=== PATIENT | female | born 1955 | race American Indian/Alaskan Native ===

== ENCOUNTER 2019-04-18 05:59 | Day surgery (SDC) | payer OTHER ==
--- NOTE | 2019-04-17 15:39 | History and Physical Report ---
History of Present Illness Date of examination: 04/12/19 History of present illness: Patient presents for diagnostic hysteroscopy with D&C d/t persistent Postmenopausal bleeding and EMB with simple hyperplasia. 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 Abnormal PAP: negative Infection History HIV Risk Eval: no Hx of STD: None Active Medications (reviewed today): SIMVASTATIN 20 MG ORAL TABLET (SIMVASTATIN) 1 po qhs LOSARTAN POTASSIUM TABLET (LOSARTAN POTASSIUM TABS) HYDROCHLOROTHIAZIDE 25 MG ORAL TABLET (HYDROCHLOROTHIAZIDE) 1 po qd Current Allergies (reviewed today): PCN (Critical) Past Medical History: Reviewed history from 12/30/2007 and no changes required: Hypertension Hyperlipidemia Past Surgical History: Reviewed history from 12/30/2007 and no changes required: BTL Family History Summary: Reviewed history Last on 07/06/2014 and no changes required:04/17/2019 Other Family Member - Has No Family History of Uterine Cancer - Entered On: 11/18/2018 Other Family Member - Has No Family History of Small Bowel Cancer - Entered On: 11/18/2018 Other Family Member - Has No Family History of Stomach Cancer - Entered On: 11/18/2018 Other Family Member - Has No Family History of Pancreatic Cancer - Entered On: 11/18/2018 Other Family Member - Has No Family History of Ovarvian Cancer - Entered On: 11/18/2018 Other Family Member - Has No Family History of Kidney/Urinary Tract Cancer - Entered On: 11/18/2018 Other Family Member - Has No Family History of Spontaneous DVT-PE - Entered On: 11/18/2018 Other Family Member - Has No Family History of Colon Cancer - Entered On: 11/18/2018 Other Family Member - Has No Family History of Brain Cancer - Entered On: 11/18/2018 Other Family Member - Has No Family History of Breast Cancer - Entered On: 11/18/2018 Other Family Member - Has No Family History of Biliary Tract Cancer - Entered On: 11/18/2018 General Comments - FH: No Family History of Breast Cancer No Family History of Colon Cancer No Family History of Ovarian Cancer No Family History of DVT/PE on OCP Social History: Reviewed history from 07/06/2014 and no changes required: Patient is Smoking History: Patient has never smoked. Risk Factors: Smoked Tobacco Use: Never smoker Smokeless Tobacco Use: Never Passive smoke exposure: no Drug use: no Alcohol use: no Exercise: yes Seatbelt use: 100 % Mammogram History: Date of Last Mammogram: 08/30/2018 PAP Smear History: Date of Last PAP Smear: 10/28/2018 Previous Tobacco Use: Signed On 03/15/2019 Smoked Tobacco Use: Never smoker Smokeless Tobacco Use: Never Passive smoke exposure: no Drug use: no HIV high-risk behavior: no Caffeine use: 0 drinks per day Previous Alcohol Use: Signed On 03/15/2019 Alcohol use: no Exercise: yes Times per week: 3 Seatbelt use: 100 % Sun Exposure: rarely Colonoscopy History: Date of Last Colonoscopy: 03/04/2007 Mammogram History: Date of Last Mammogram: 08/30/2018 PAP Smear History: Date of Last PAP Smear: 10/28/2018 Physical Exam Appearance: well developed, well nourished, no acute distress Other Exams Lungs: no rales, rhonchi, or wheezes Heart: S1, S2, no murmur, rub, or gallop Genitourinary Exam Uterus: deferred for EUA Impression & Recommendations: Problem # 1: Postmenopausal Bleeding (ICD-627.1) (AAV96-L17.0) [id number] Consent reviewed and signed . Possible laparoscopy or laparotomy explained to patient. The risks and alternatives for this surgery were reviewed with the patient. She was informed of possible bleeding, infection, injury to bowel, bladder, ureters or other adjacent organs. The patient was instructed/informed the following: The normal length of hospital stay for this procedure. Nothing to eat or drink after midnight the evening prior to surgery. Clear liquids the evening before surgery. Pre-op instruction sheets given. . Infection precautions reviewed, patient to call for any signs or symptoms of infection. The usual discomforts associated with this procedure were detailed. Proper use of pain medicines was reviewed. Patient was given ample opportunity to have all her questions answered before signing informed consent. Problem # 2: Benign endometrial hyperplasia (ICD-621.31) (GCE12-O79.01) Orders: Ofc Vst Est [id number] ([id number]) Medications Added to Medication List This Visit: 1) Simvastatin 20mg 2) Simvastatin 20 Mg Oral Tablet (Simvastatin) .... 1 po qhs 3) Losartan Potassium Tablet (Losartan potassium tabs) Medications and Allergies Allergies Allergy/AdvReac Type Severity Reaction Status Date / Time Penicillins Allergy Hives Unverified 04/12/19 16:47 Home Medications Medication Instructions Recorded Confirmed Last Taken Type Losartan Potassium 100 mg PO DAILY 04/12/19 04/12/19 Unknown History Simvastatin 20 mg PO DAILY 04/12/19 04/12/19 Unknown History hydroCHLOROthiazide [HCTZ] 25 mg PO DAILY 04/12/19 04/12/19 Unknown History Assessment and Plan - Patient Problems (1) Postmenopausal bleeding Status: Acute (2) Endometrial hyperplasia without atypia, simple Status: Acute
[~2019-04-18 05:59] MED LIST: LACTATED RINGERS 1,000 ML IV SCH
[2019-04-18] MEDS ORDERED: fentaNYL 100 MCG/2 ML INJ IV PRN (06:24)
--- NOTE | 2019-04-18 06:26 | Anesthesia Consultation ---
Anesthesia Consult and Med Hx Date of service: 04/18/19 - Airway Anesthetic Teeth Evaluation: Dentures (full upper and lower) ROM Head & Neck: Adequate Mental/Hyoid Distance: Adequate Mallampati Class: Class III Intubation Access Assessment: Probably Good - Pulmonary Exam CTA: Yes - Cardiac Exam Cardiac Exam: RRR - Pre-Operative Health Status ASA Pre-Surgery Classification: ASA2 Proposed Anesthetic Plan: General - Pulmonary Hx Smoking: No Hx Respiratory Symptoms: No - Cardiovascular System Hx Hypertension: Yes Hx Heart Attack/AMI: No Hx Percutaneous Transluminal Coronary Angioplasty (PTCA): No - Central Nervous System CVA: No - Gastrointestinal Hx Gastroesophageal Reflux Disease: Yes (well controlled) - Endocrine Hx Renal Disease: No Hx Liver Disease: No Hx Insulin Dependent Diabetes: No Hx Non-Insulin Dependent Diabetes: No Hx Thyroid Disease: No - Other Systems Hx Obesity: No - Additional Comments Anesthesia Medical History Comments: No hx anesthetic complications.
--- NOTE | 2019-04-18 06:26 | Anesthesia Day of Surgery ---
Anesthesia Day of Surgery - Day of Surgery Patient Examined: Yes Patient H&P Reviewed: Yes Patient is NPO: Yes
[2019-04-18] MEDS ORDERED: BACTERIOSTATIC SODIUM CHLORIDE 0.9% 30 ML VIAL INFILTRATI ONE (06:31)
[2019-04-18] MEDS: MIDAZOLAM 2 MG/2 ML INJ IV NR ×2 (06:55→07:25)
[2019-04-18 07:16] LABS: Hematocrit 39.6 % (30.3-42.9); Hemoglobin 13.1 gm/dl (10.1-14.3); Mean Corpuscular HGB Conc 33 % (30-34); Mean Corpuscular Volume 84 fl (79-97); Platelet Count 208 K/mm3 (140-440); Red Blood Count 4.69 M/mm3 (3.65-5.03); Red Cell Distribution Width 15.2 % (13.2-15.2)
[2019-04-18 07:17] LABS: BUN/Creatinine Ratio 9; Blood Urea Nitrogen 9 mg/dL (7-17); Calcium 9.2 mg/dL (8.4-10.2); Hemolysis Index 3
[2019-04-18] MEDS ORDERED: ONDANSETRON 4 MG/2 ML INJ ONE (07:25)
[2019-04-18] MEDS ORDERED: propofoL 200 MG/20 ML VIAL IV ONE (07:25)
[2019-04-18] MEDS ORDERED: dexAMETHasone 20 MG/5 ML VIAL ONE (07:25)
[2019-04-18] MEDS ORDERED: fentaNYL 100 MCG/2 ML INJ ONE (07:25)
[2019-04-18] MEDS ORDERED: KETOROLAC 30 MG/1 ML INJ ONE (07:25)
[2019-04-18] MEDS ORDERED: LIDOCAINE MPF (2%) 20 MG/1 ML VIAL 5 ML ONE (07:26)
[2019-04-18] MEDS ORDERED: SILVER NITRATE APPLICATOR 1 EA TP ONE (07:27)
[2019-04-18] MEDS ORDERED: SODIUM CHLORIDE 0.9% IRRIG SOLN 2000 ML IR ONE (08:15)
--- NOTE | 2019-04-18 08:44 | Operative Report ---
Operative Report Operative Report: PREOPERATIVE DIAGNOSES: 1. Persistent postmenopausal bleeding. POSTOPERATIVE DIAGNOSES: 1. Persistent postmenopausal bleeding.. PROCEDURE PERFORMED: 1. Dilation and curettage (D&C). 2. Hysteroscopy. ANESTHESIA: General anesthesia with LMA ESTIMATED BLOOD LOSS: Less than 20 cc. INDICATIONS: This is a 63-year-old -British female that presents persistent postmenopausal bleeding in spite of benign findings on endometrial biopsy. PROCEDURE: The patient was seen in the preoperative suite. Expected procedure and postoperative course discussed with her and her . She was taken to the operative suite where general anesthesia by LMA was performed. She was placed in a dorsal lithotomy position. . A bimanual exam was done, the uterus was found to be retroverted, mobile. She was prepped and draped in the normal sterile fashion. Timeout was performed. Her bladder was drained with the red Rodas catheter which produced approximately 50 cc of clear yellow urine. The cervix and vagina were grossly normal with no obvious masses or deformities. A bivalve operative speculum was placed in the vagina and the anterior lip of the cervix was grasped with the single-tooth tenaculum. The uterus was sounded to ~10 cm. The cervix was progressively dilated to allow the diagnostic hysteroscope. Under direct visualization, the ostia were within normal limits. The endometrial lining appeared thickened, however, there was no obvious evidence of malignancy. The hysteroscope was removed and a small sharp curette was placed intrauterine very carefully using anterior wall for guidance. Endometrial curettings were obtained The endometrial sampling was placed on Telfa pad and sent to Pathology for evaluation, permanent. The hysteroscope was introduced again, still with thickened tissue noted however no evidence of perforation was noted. At this point procedure was ended. The single-tooth tenaculum and speculum were removed. The cervix was found to be hemostatic. Counts were correct. Patient was taken to the PACU stable. Distention fluid: Normal saline Deficit: 100 mL
[2019-04-18 09:30] VITALS: BP 145/85
== END 2019-04-18 12:19 | disposition home or self-care (01) ==
LOC: OR 05:59
PROVIDERS: ATTEND Obstetrics & Gynecology
DX: N95.0 Postmenopausal bleeding (principal); N85.01 Benign endometrial hyperplasia; I10 Essential (primary) hypertension; K21.9 Gastro-esophageal reflux disease without esophagitis; E78.00 Pure hypercholesterolemia, unspecified; Z79.899 Other long term (current) drug therapy; Z88.0 Allergy status to penicillin; Z98.890 Other specified postprocedural states; Z98.51 Tubal ligation status
CPT/HCPCS: 36415; 58558; 80048; 85027; 86850; 86900; 86901; 88305; A4217; J1100; J1885; J2250; J2405; J2704; J3010; J7120

== ENCOUNTER 2019-08-10 10:39 | Observation (INO) | payer OTHER, MEDICARE ==
[2019-06-30 09:30] LABS: Basophils # (Auto) 0.1 K/mm3 (0.0-0.1); Basophils % (Auto) 0.7 % (0.0-1.8); Eosinophils # (Auto) 0.8 K/mm3 (0.0-0.4); Eosinophils % (Auto) 10.9 % (0.0-4.3); Hematocrit 38.8 % (30.3-42.9); Hemoglobin 13.1 gm/dl (10.1-14.3); Lymphocytes # (Auto) 2.4 K/mm3 (1.2-5.4); Lymphocytes % (Auto) 30.5 % (13.4-35.0); Mean Corpuscular HGB Conc 34 % (30-34); Mean Corpuscular Volume 86 fl (79-97); Monocytes # (Auto) 0.6 K/mm3 (0.0-0.8); Monocytes % (Auto) 8.2 % (0.0-7.3); Platelet Count 210 K/mm3 (140-440); Red Cell Distribution Width 14.7 % (13.2-15.2)
[2019-06-30 09:43] LABS: BUN/Creatinine Ratio 13; Blood Urea Nitrogen 13 mg/dL (7-17); Calcium 9.5 mg/dL (8.4-10.2); Hemolysis Index 3
--- NOTE | 2019-06-30 15:31 | Anesthesia Consultation ---
Anesthesia Consult and Med Hx Date of service: 07/06/19 - Airway Anesthetic Teeth Evaluation: Dentures ROM Head & Neck: Adequate Mental/Hyoid Distance: Adequate Mallampati Class: Class II Intubation Access Assessment: Probably Good - Pulmonary Exam CTA: Yes - Cardiac Exam Cardiac Exam: RRR - Pre-Operative Health Status ASA Pre-Surgery Classification: ASA3 Proposed Anesthetic Plan: General Nerve Block: TAP - Pulmonary Hx Smoking: No Hx Respiratory Symptoms: No - Cardiovascular System Hx Hypertension: Yes Hx Heart Attack/AMI: No Hx Percutaneous Transluminal Coronary Angioplasty (PTCA): No - Central Nervous System CVA: No - Gastrointestinal Hx Gastroesophageal Reflux Disease: Yes (diet controlled) - Endocrine Hx Renal Disease: No Hx Liver Disease: No Hx Insulin Dependent Diabetes: No Hx Non-Insulin Dependent Diabetes: No Hx Thyroid Disease: No - Hematic Hx Anemia: Yes (prior hx blood transfusion) - Other Systems Hx Cancer: No (atypical cells on uterine biopsy) Hx Obesity: No - Additional Comments Anesthesia Medical History Comments: No hx anesthetic complications. Hypertensive at pre-assessment visit though asymptomatic. Patient reports BP is usual well controlled and was 120s/70s as recent [facility] [employer] appointment. She believes anxiety about upcoming surgery is contributing. Patient takes antihypertensives at night. Instructed to take meds per usual night before surgery. COVID testing done in pre-assessment per protocol. Test resulted positive. 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
--- NOTE | 2019-08-06 13:35 | History and Physical Report ---
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 D&C: (04/18/2019) Hysteroscopy: (04/18/2019) Abnormal PAP: negative Infection History HIV Risk Eval: no Hx of STD: None Active Medications (reviewed today): SIMVASTATIN 20 MG ORAL TABLET (SIMVASTATIN) 1 po qhs LOSARTAN POTASSIUM TABLET (LOSARTAN POTASSIUM TABS) HYDROCHLOROTHIAZIDE 25 MG ORAL TABLET (HYDROCHLOROTHIAZIDE) 1 po qd Current Allergies (reviewed today): PCN (Critical) Past Medical History: Reviewed history from 04/12/2019 and no changes required: Hypertension Hyperlipidemia Past Surgical History: Reviewed history from 04/18/2019 and no changes required: BTL D&C: (04/18/2019) Hysteroscopy: (04/18/2019) Family History Summary: Reviewed history Last on 06/28/2019 and no changes required:08/06/2019 Other Family Member - Has No Family History of Uterine Cancer - Entered On: 11/18/2018 Other Family Member - Has No Family History of Small Bowel Cancer - Entered On: 11/18/2018 Other Family Member - Has No Family History of Stomach Cancer - Entered On: 11/18/2018 Other Family Member - Has No Family History of Pancreatic Cancer - Entered On: 11/18/2018 Other Family Member - Has No Family History of Ovarvian Cancer - Entered On: 11/18/2018 Other Family Member - Has No Family History of Kidney/Urinary Tract Cancer - Entered On: 11/18/2018 Other Family Member - Has No Family History of Spontaneous DVT-PE - Entered On: 11/18/2018 Other Family Member - Has No Family History of Colon Cancer - Entered On: 11/18/2018 Other Family Member - Has No Family History of Brain Cancer - Entered On: 11/18/2018 Other Family Member - Has No Family History of Breast Cancer - Entered On: 11/18/2018 Other Family Member - Has No Family History of Biliary Tract Cancer - Entered On: 11/18/2018 General Comments - FH: No Family History of Breast Cancer No Family History of Colon Cancer No Family History of Ovarian Cancer No Family History of DVT/PE on OCP Social History: Reviewed history from 07/06/2014 and no changes required: Patient is Smoking History: Patient has never smoked. Risk Factors: Smoked Tobacco Use: Never smoker Smokeless Tobacco Use: Never Passive smoke exposure: no Drug use: no HIV high-risk behavior: no Alcohol use: no Exercise: yes Seatbelt use: 100 % Mammogram History: Date of Last Mammogram: 08/30/2018 PAP Smear History: Date of Last PAP Smear: 10/28/2018 Previous Tobacco Use: Signed On 06/28/2019 Smoked Tobacco Use: Never smoker Smokeless Tobacco Use: Never Passive smoke exposure: no Drug use: no HIV high-risk behavior: no Caffeine use: 0 drinks per day Previous Alcohol Use: Signed On - 06/28/2019 Alcohol use: no Exercise: yes Times per week: 3 Seatbelt use: 100 % Sun Exposure: rarely Colonoscopy History: Date of Last Colonoscopy: 03/04/2007 Mammogram History: Date of Last Mammogram: 08/30/2018 PAP Smear History: Date of Last PAP Smear: 10/28/2018 Physical Exam Appearance: well developed, well nourished, no acute distress Other Exams Lungs: no rales, rhonchi, or wheezes Heart: S1, S2, no murmur, rub, or gallop Genitourinary Exam Uterus: deferred for EUA Impression & Recommendations: Problem # 1: Atypical endometrial hyperplasia (ICD-621.33) (IFM14-J84.02) Diagnosis explained to patient . Discussed with patient various medical and surgical therapies common for treatment including, but not limited to, myomectomy, hysterectomy and uterine artery embolization. Discussed risks and benefits of laparotomy, laparoscopy, vaginal and robotic assisted approaches for hysterectomies. Patient desires definitive treatment in the form of robot assisted laparoscopic total hysterectomy. The risks and alternatives for this surgery were reviewed with the patient. She was informed of the risks of the surgery including, but not limited to, pain, infection, bleeding possibly heavy enough to require a blood transfusion with associated risks of infections (hepatitis and HIV) and transfusion reactions, possible damage to bowel, bladder or ureter(s). Indications to abort a robotic/laparoscopic procedure and perform an open procedure were explained. Patient advised the small risks of spreading of malignancy if morcellation is required during the surgery patient understands and approves performing if necessary. Questions answered. Consent reviewed and signed The patient was instructed/informed the following: The normal length of hospital stay for this procedure. Nothing to eat or drink after midnight the evening prior to surgery. Clear liquids the day before surgery. Pre-op instruction sheets given. Wound care instructions given. Problem # 2: Postmenopausal Bleeding (ICD-627.1) (FSA94-B26.0) Medications and Allergies Allergies Allergy/AdvReac Type Severity Reaction Status Date / Time Penicillins Allergy Hives Verified 08/01/19 12:15 Home Medications Medication Instructions Recorded Confirmed Last Taken Type Losartan Potassium 100 mg PO DAILY 04/12/19 08/01/19 04/17/19 History Simvastatin 20 mg PO DAILY 04/12/19 08/01/19 04/17/19 History hydroCHLOROthiazide [HCTZ] 25 mg PO DAILY 04/12/19 08/01/19 04/17/19 History Active Meds: Active Medications Gentamicin Sulfate (Gentamicin) 120 mg 1.5 mg/kg (120 mg) IV PREOP LUIS ENRIQUE; Protocol Clindamycin HCl (Cleocin 900 Mg/50 Ml) 900 mg in 50 mls @ 100 mls/hr IV PREOP ONE; Protocol Stop: 08/10/19 07:29 Exam Vital Signs Temp Pulse Resp BP Pulse Ox 98.8 F 92 H 20 187/83 98 06/30/19 09:00 06/30/19 09:00 06/30/19 09:00 06/30/19 09:00 06/30/19 09:00 Results - Labs 06/30/19 09:05 06/30/19 09:05 Assessment and Plan - Patient Problems (1) Atypical endometrial hyperplasia Status: Acute (2) Postmenopausal bleeding Status: Acute
[2019-08-08 10:47] LABS: Hematocrit 37.7 % (30.3-42.9); Hemoglobin 12.9 gm/dl (10.1-14.3); Mean Corpuscular HGB Conc 34 % (30-34); Mean Corpuscular Volume 86 fl (79-97); Platelet Count 210 K/mm3 (140-440); Red Blood Count 4.38 M/mm3 (3.65-5.03); Red Cell Distribution Width 14.7 % (13.2-15.2)
[2019-08-08 11:01] LABS: Alanine Aminotransferase 9 units/L (7-56); BUN/Creatinine Ratio 11; Blood Urea Nitrogen 11 mg/dL (7-17); Calcium 9.6 mg/dL (8.4-10.2); Hemolysis Index 0
[2019-08-10] MEDS: LACTATED RINGERS 1,000 ML IV SCH ×2 (07:00→18:16)
--- NOTE | 2019-08-10 07:36 | Anesthesia Day of Surgery ---
Anesthesia Day of Surgery - Day of Surgery Patient Examined: Yes Patient H&P Reviewed: Yes Patient is NPO: Yes
[~2019-08-10 10:39] MED LIST changes: +ACETAMINOPHEN 500 MG TAB PO ONE; +BUPIVACAINE-EPINEPHRINE/PF 0.25%-1:200,000 (30 ML) VIAL INFILTRATI ONE; +CALCIUM CHLORIDE 1,000 MG/10 ML SYRINGE IV ONE; +CELECOXIB 200 MG CAP PO NR; +CITRIC ACID-SOD CITRATE 500 ML IV ONE; +GABAPENTIN 300 MG CAP PO NR; +GENTAMICIN 40 MG/ML VIAL 2 ML IV SCH; +GENTAMICIN/NS 120MG/100ML 120 MG/100 ML BAG IV NR; +GLYCOPYRROLATE 0.4 MG/2 ML INJ ONE; +HYDROmorphone 1 MG/1 ML INJ IV PRN; +HYDROmorphone 1 MG/1 ML INJ ONE; +LIDOCAINE MPF (2%) 20 MG/1 ML VIAL 5 ML ONE; +MAGNESIUM OXIDE 400 MG TAB PO SCH; +METOCLOPRAMIDE 10 MG TAB PO PRN; +METOCLOPRAMIDE 10 MG/2 ML INJ IV PRN; +MIDAZOLAM 2 MG/2 ML INJ IV NR; +MORPHINE 2 MG/1 ML INJ IV PRN; +MORPHINE 4 MG/1 ML INJ IV PRN; +NALOXONE 0.4 MG/1 ML INJ IV PRN; +NEOMY 40 MG/POLYMYXIN B 200,000 UNITS/ML (GU) AMPULE IR ONE; +NEOSTIGMINE 10MG/10 ML INJ MDV ONE; +ONDANSETRON 4 MG ODT TAB PO PRN; +ONDANSETRON 4 MG/2 ML INJ IV PRN; +ONDANSETRON 4 MG/2 ML INJ ONE; +PHENYLEPHRINE/NS 1,000 MCG/10 ML SYRINGE (OR USE) IV ONE; +ROCURONIUM 50 MG/5 ML INJ IV ONE; +SODIUM CHLORIDE 0.9% IRR 1,500 ML BOTTLE IR ONE; +SODIUM CHLORIDE 0.9% IRRIG SOLN 2000 ML IR ONE; +SUCCINYLCHOLINE CHLORIDE 200 MG/10 ML INJ MDV ONE; +THROMBIN (RECOMBINANT) 5,000 UNIT VIAL TP ONE; +cloNIDine/PF 1,000 MCG/10 ML VIAL EP ONE; +dexAMETHasone 4 MG/ML VIAL ONE; +ePHEDrine SULFATE 50 MG/1 ML INJ ONE; +fentaNYL 100 MCG/2 ML INJ IV PRN; +fentaNYL 100 MCG/2 ML INJ ONE; +propofoL 200 MG/20 ML VIAL IV ONE
[2019-08-10] MEDS ORDERED: SODIUM CHLORIDE 0.9% 1000 ML 1,000 ML IV SCH (10:45)
--- NOTE | 2019-08-10 10:56 | Post Operative Note ---
Pre-op diagnosis: postmenopausal bleeding Post-op diagnosis: same Procedure: RALTH/BSO Anesthesia: GETA Surgeon: MYRIAM TATE (Zoe Adams) Estimated blood loss: other (200mL) Pathology: list (uterus, tubes and ovaries) Specimen disposition: to lab Condition: stable Disposition: PACU
[2019-08-10] MEDS ORDERED: FAMOTIDINE 20 MG/2 ML INJ IV SCH (11:00)
[2019-08-10] MEDS ORDERED: LACTATED RINGERS 1,000 ML ONE (11:23)
[2019-08-10] MEDS ORDERED: KETOROLAC 30 MG/1 ML INJ ONE (11:27)
--- NOTE | 2019-08-10 13:43 | Operative Report ---
Operative Report Operative Report: Date: 08/10/2019 Preoperative diagnosis: 1. Postmenopausal bleed 2. History of atypical endometrial hyperplasia 3. Body mass index of 29 kg/m 4. Hypertension Postoperative diagnosis: 1. Postmenopausal bleed 2. History of atypical endometrial hyperplasia 3. Body mass index of 29 kg/m 4. Hypertension Procedure: 1. Robotic-assisted laparoscopic total hysterectomy with bilateral Salpingo-oophorectomy Surgeon: Candace Vela MD Mattress Filling Machine Tender: Zoe Adams Anesthesiologist: Dr. Wanda Garrido Anesthesia: General endotracheal anesthesia EBL: Approximately 100 mL Findings: EUA: Uterus palpated to approximately 12weeks. Uterus was sounded to 11 cm. Grossly normal tubes and ovaries. Procedure: Patient was taken to the OR and placed in the supine position. General anesthesia was induced and an oral gastric tube was placed. Her neck and head were placed on foam support. Foam eye protection with goggles were secured in place. Then foam face protection was placed and secured. Foam shoulder pads were then positioned on her shoulders for Trendelenburg positioning. She was then placed in dorsolithotomy position. Exam under anesthesia as above. The abdomen and vagina were then prepped and draped in the usual sterile fashion. Timeout was performed. A Cowart catheter was inserted into the bladder with drainage of clear yellow urine. The operative speculum was introduced into the vagina and the anterior lip of the cervix was grasped with single-toothed tenaculum. The uterus was sounded to 11 cm. The cervix was progressively dilated to allow the large V care uterine manipulator. The bulb of the manipulator was inflated and the speculum and tenaculum were removed. The cup of the manipulator was placed around the cervix and the blue occluder of the manipulator was properly positioned in the vagina and secured. A laparotomy sponge that was saturated with a solution of polymyxin and saline was placed in the vagina to ensure pneumoperitoneum. Sterile gloves were placed and attention was turned to the abdomen. A 10 mm midline vertical supraumbilical incision was made approximately 10 cm superior to the elevated fundus of the uterus. A 10-12 mm trocar with the laparoscope and camera attached was introduced through this incision under direct visualization. The abdomen was insufflated. No obvious bowel, bladder, ureteral, or major vascular injury was noted. The patient was then placed in steep Trendelenburg position and the following trochars were placed under direct visualization: 8 mm robotic trochars were placed through incisions made in the bilateral midclavicular lower abdominal region approximately 10 cm lateral to the midline incision, and a 5 mm trocar was placed through an incision made in the right lower lateral pelvis. The 10 mm laparoscope was then replaced by a 5 mm laparoscope that was placed through the 5 millimeter lateral trocar. The 12 mm trocar was then removed and the Arnol Portillo fascial closure device was placed through the incision and a 0 Vicryl was placed through the fascia. Once the suture was secured the 12 mm trocar was reintroduced. Once the trochars were in the appropriate positions, the da Dia robot system was engaged. The EndoShears and bipolar device was placed through the 8 mm trochars and positioned then attention was turned to the console. The uterus was elevated and bilateral salpingectomy was performed. Each tube was removed through the 5 mm trocar and sent to pathology in separate containers. Then the utero-ovarian ligaments were clamped. cauterized and incised bilaterally using 30 W of energy. Then the round ligaments were clamped, cauterized and incised bilaterally. The anterior leaf of the broad ligament was elevated and with careful blunt and sharp dissection the bladder flap was created and dissected away from the lower uterine segment and cervix. The posterior leaf of the broad ligament was dissected away from the uterine vessels. The cup of the uterine manipulator was palpated both anteriorly and posteriorly. The bladder was further dissected away from the lower uterine segment. The uterine vessels were then clamped and cauterized bilaterally. Blanching of the uterus was then noted. Attention was again turned to the anterior lower uterine segment and the bladder was confirmed to be away from the operative field. Then attention was turned again to the posterior where the cup of the manipulator was palpated and a colpotomy was performed down to the cup. The incision was extended in the lateral position to the uterine vessels that were again clamped and cauterized and incised. Continuing along the cup of the manipulator in a circumferential manner the colpotomy was completed. Using lateral wall vaginal retractors as well as the Seth retractors the uterus and cervix were removed through the vagina. While attempting to remove the uterus and cervix, the cervix amputated and the uterus was removed in pieces. The pelvis was irrigated with warm normal saline. A moist laparotomy sponge was placed in the vagina to maintain pneumoperitoneum. Attention was turned to the adnexa. The course of the ureters were noted to be away from the operative field. At which point bilateral oophorectomy was performed. The laparotomy sponge was removed from the vagina. The ovaries were removed through the vagina. The laparotomy sponge was placed again into the vagina. The pelvis was irrigated with warm normal saline. Hemostasis was noted. The vagina cuff was reapproximated using V LOC 180 suture. Then a J stitch was performed to secure the suture. Again the pelvis was copiously irrigated with polymixin in warm normal saline. The laparotomy sponge was removed from the vagina. No obvious evidence of bowel, bladder, ureteral, or major vascular injury was noted. Once hemostasis was noted, platelet rich plasma was applied to the operative field to ensure hemostasis. Platelet poor plasma was applied to decrease formation of adhesions. Then the instruments were removed, the robot was disengaged. The 12 mm trocar was removed and the fascia was ligated with the 0 Vicryl suture that was placed at the beginning of the procedure. The patient was taken out of Trendelenburg position, the abdomen was desufflated, the remaining trochars were removed. Incisions were reapproximated using 4-0 Monocryl in a subcuticular manner. Surgiseal was placed over the other incisions. The vagina was then inspected, the cuff was palpated to be intact and no bleeding was noted and slightly blood- tinged urine was draining into the Cowart bag from the bladder at the end of the procedure. Counts were correct 3. Patient was taken to recovery room in stable condition. Urine became clear in the Cowart catheter during her recovery and PACU.
[2019-08-10] MEDS ORDERED: ACETAMINOPHEN 325 MG TAB PO PRN (14:30)
[2019-08-10] MEDS ORDERED: CLINDAMYCIN 600 MG/50 mL 600 MG/50 ML BAG IV SCH (15:00)
[2019-08-10] MEDS: GENTAMICIN/NS 80 MG/100 ML 100 ML IV SCH ×2 (16:30→23:32)
--- NOTE | 2019-08-10 16:46 | Post Anesthesia Evaluation ---
- Post Anesthesia Evaluation Patient Participated: Yes Airway Patent: Yes Stable Respiratory Function: Yes Nausea/Vomiting: No Temp > 96.8F: Yes Pain Manageable: Yes Adequeate Hydration: Yes Anesthesia Complications: No
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
[2019-08-10] MEDS ORDERED: KETOROLAC 30 MG/1 ML INJ IV SCH ×2 (18:30)
[2019-08-11 05:17] LABS: Hematocrit 32.1 % (30.3-42.9); Hemoglobin 10.9 gm/dl (10.1-14.3)
--- NOTE | 2019-08-11 09:50 | Discharge Summary ---
Providers - Providers Date of Admission: 08/10/19 10:40 Date of discharge: 08/11/19 Attending physician: MYRIAM TATE Primary care physician: GINNY BRAR Hospitalization Condition: Good Procedures: RALTH/BSO Hospital course: UNREMARKABLE Disposition: DC- TO HOME OR SELFCARE - Discharge Diagnoses (1) Atypical endometrial hyperplasia Status: Resolved (2) Postmenopausal bleeding Status: Resolved (3) Hypertension Status: Chronic Core Measure Documentation - Palliative Care Palliative Care/ Comfort Measures: Not Applicable - Core Measures Any of the following diagnoses?: none Exam - Constitutional Vitals: Temp Pulse Resp BP Pulse Ox 97.6 F 67 18 134/64 100 08/11/19 00:46 08/11/19 00:46 08/11/19 00:46 08/11/19 00:46 08/11/19 00:46 General appearance: Present: no acute distress - Neck Neck: Present: supple - Respiratory Respiratory effort: normal Respiratory: bilateral: CTA - Cardiovascular Rhythm: regular - Extremities Extremities: no ischemia, No edema - Abdominal General gastrointestinal: Present: soft, non-tender, non-distended, normal bowel sounds Female genitourinary: Present: deferred - Integumentary Integumentary: Present: clear, warm, dry (Incisions: c/d/i) - Psychiatric Psychiatric: appropriate mood/affect, intact judgment & insight, memory intact, cooperative - Neurologic Neurologic: CNII-XII intact Plan Activity: other (No sex, no driving. Ambulate ~1mile a day on your property. Void every hour. ) Weight Bearing Status: Full Weight Bearing Diet: low fat, low cholesterol, low salt (Small meals frequently, drink ~70oz water a day. Avoid spicy, fat, high salt food. ) Wound: open to air, keep clean and dry Special Instructions: no heavy lifting (greater than 25lbs) Follow up with: GINNY BRAR MD [Primary Care Provider] - 3 Days MYRIAM TATE MD [Staff Physician] - (As scheduled) Forms: [facility] Discharge Summary Prescriptions: Ibuprofen [Motrin 800 MG tab] 800 mg PO Q8H PRN #30 tab PRN Reason: Pain, Mild (1-3) oxyCODONE /ACETAMINOPHEN [Percocet 5/325 mg] 1 - 2 tab PO Q6H PRN #14 tablet PRN Reason: Pain, Moderate (4-6)
[2019-08-11] MEDS ORDERED: hydroCHLOROthiazide 25 MG TAB PO SCH (10:00)
[2019-08-11] MEDS ORDERED: LOSARTAN 50 MG TAB PO SCH (10:00)
[2019-08-11] MEDS ORDERED: oxyCODONE /ACETAMINOPHEN 5-325MG TAB PO PRN (10:35)
[2019-08-11] MEDS ORDERED: IBUPROFEN 800 MG TAB PO PRN (10:42)
[2019-08-11 14:50] VITALS: BP 140/78
== END 2019-08-11 10:59 | disposition home or self-care (01) ==
LOC: OR 10:39 → OB 10:40
PROVIDERS: ADMIT Obstetrics & Gynecology; ATTEND Obstetrics & Gynecology
DX: Z03.818 Encounter for observation for suspected exposure to other biological agents ruled out (principal); N85.02 Endometrial intraepithelial neoplasia [EIN]; N95.0 Postmenopausal bleeding; I10 Essential (primary) hypertension; Z79.899 Other long term (current) drug therapy; Z88.0 Allergy status to penicillin
CPT/HCPCS: 36415; 58573; 64450; 80048; 80053; 84132; 85014; 85018; 85025; 85027; 86850; 86900; 86901; 88307; 96365; 96366; 96368; 96375; A4217; G0378; J0330; J0735; J1100; J1170; J1580; J1885; J2250; J2370; J2405; J2704; J2710; J3010; J7030; J7120; S2900; U0003; 88302; 88305

== ENCOUNTER 2021-01-05 11:21 | Emergency (ER) | payer MEDICARE, OTHER ==
[2021-01-05] MEDS ORDERED: KETOROLAC 60 MG/2 ML INJ IM ONE (12:19)
[2021-01-05] MEDS ORDERED: HYDROcodone/ACETAMINOPHEN 5-325 MG TAB PO ONE (12:19)
[2021-01-05] MEDS ORDERED: TETANUS,DIPH,PERTUSS(ACELL) VACCINE 0.5 ML SYRINGE IM ONE (12:20)
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
[2021-01-05 13:49] VITALS: BP 161/79
--- NOTE | 2021-01-09 09:58 | Electrocardiograph Report ---
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
== END 2021-01-05 13:57 | disposition home or self-care (01) ==
LOC: ED 11:21
DX: S20.219A Contusion of unspecified front wall of thorax, initial encounter (principal); S60.221A Contusion of right hand, initial encounter; S80.12XA Contusion of left lower leg, initial encounter; Z88.0 Allergy status to penicillin; I10 Essential (primary) hypertension; Z90.710 Acquired absence of both cervix and uterus; V49.40XA Driver injured in collision with unspecified motor vehicles in traffic accident, initial encounter; Y93.89 Activity, other specified; Y92.89 Other specified places as the place of occurrence of the external cause; Y99.8 Other external cause status
CPT/HCPCS: 71101; 73130; 90471; 90715; 93005; 96372; 99283; J1885